=== PATIENT | female | born 1950 | race Caucasian/White ===

== ENCOUNTER 2021-04-22 14:34 | Observation (INO) | payer MEDICARE, OTHER ==
[~2021-04-22] VITALS: Ht 175.3 cm; Wt 78.9 kg
[2021-04-22 17:07] LABS: HEMOGLOBIN 15.3 gm/dl (12.3-15.3); RED BLOOD COUNT 4.8 M/UL (4.00-5.10); WHITE BLOOD COUNT 13.2 K/UL (4.5-11.0)
[2021-04-22 17:36] LABS: BUN/CREATININE RATIO 25 (0-10)
[2021-04-22] MEDS ORDERED: INDERAL TAB 2020 MG PO (20:49)
[2021-04-22] MEDS ORDERED: DIOVAN160 MG PO (20:49)
[2021-04-22] MEDS ORDERED: NORVASC5 MG PO (20:50)
[2021-04-22] MEDS ORDERED: ZOCOR20 MG PO (20:50)
[2021-04-22] MEDS ORDERED: VITAMIN C500 MG PO (20:51)
[2021-04-22] MEDS ORDERED: ARIMIDEX 1 MG TA1 MG PO (20:51)
[2021-04-22] MEDS ORDERED: VITAMIN D3125 MC1 PO (20:56)
[2021-04-23] MEDS ORDERED: HYDROCODON-ACE1 EAC4 PO ×2 (10:04→16:57)
[2021-04-23] MEDS ORDERED: VITAMIN C250 MG PO (10:42)
[2021-04-23] MEDS ORDERED: ACETAMINOPHEN500 MG PO (10:42)
== END 2021-04-23 17:42 | disposition home or self-care (01) ==
LOC: ER1 14:34 → MED SURG 4 17:03 → CDU 17:03 → MED SURG 4 18:30
PROVIDERS: Emergency Medicine; ADMIT Surgery
DX: S22.42XA Multiple fractures of ribs, left side, initial encounter for closed fracture (principal); W19.XXXA Unspecified fall, initial encounter; Y92.091 Bathroom in other non-institutional residence as the place of occurrence of the external cause; I10 Essential (primary) hypertension; F17.200 Nicotine dependence, unspecified, uncomplicated; C50.919 Malignant neoplasm of unspecified site of unspecified female breast; Z90.10 Acquired absence of unspecified breast and nipple; Z92.3 Personal history of irradiation; Z20.822 Contact with and (suspected) exposure to COVID-19; Z79.899 Other long term (current) drug therapy
CPT/HCPCS: 71045; 71250; 72128; 73030; 73080; 80053; 85025; 99285; G0378; U0002

== ENCOUNTER → 2021-05-04 | Outpatient (CLI) | payer MEDICARE, OTHER ==
[~2021-05-04] MED LIST: ACETAMINOPHEN500 MG PO; ARIMIDEX 1 MG TA1 MG PO; DIOVAN160 MG PO; HYDROCODON-ACE1 EAC4 PO; INDERAL TAB 2020 MG PO; NORVASC5 MG PO; VITAMIN C250 MG PO; VITAMIN C500 MG PO; VITAMIN D3125 MC1 PO; ZOCOR20 MG PO
== END ==
LOC: KOH-I 13:24
DX: R22.41 Localized swelling, mass and lump, right lower limb (principal)
CPT/HCPCS: 93971